=== PATIENT | female | born 1950 | race African-American/Black ===

== ENCOUNTER → 2017-06-09 | Day surgery (SDC) | payer OTHER ==
[~2017-06-09] MED LIST: IV RINGERS,LACTATED 1000ML 1,000 ML IV SCH; LIDOCAINE 1% 1 ML SYRINGE. ID PRN; LOSA100T6 PO; METF-620 PO; MIDAZOLAM HCL/PF 2 MG/2 ML VIAL. IV PRN; PROPOFOL 40 ML IV ONE; TRIA1TAB3 PO; fentaNYL PF VIAL 100 MCG/2 ML VIAL IV PRN
--- NOTE | 2017-06-09 09:55 | PDOC1 ---
HISTORY & PHYSICAL H&P Genny Rivers [id number] 1950 05/12/2017 03:00 PM 10/12 [facility], [facility] [address] [place] [address]. [phone] Patient: Genny Rivers Date of : 1950 Date: 05/12/2017 3:00 PM Visit Type: Consult This 66 year old female presents for Screening colonoscopy. History of Present Illness: 1. Screening colonoscopy No prior screening. Denies risk factors. Pertinent negatives include abdominal pain, change in bowel habits, change in stool caliber, constipation, decreased appetite, diarrhea, melena, nausea, rectal bleeding, vomiting, weight gain and weight loss. Additional information: No family history of colon cancer , No family history of Crohn's/colitis, No NSAID/ASA use and Last colonoscopy 2005. INTAKE COMMENTS: Intake Comments: Nurse Note: the pt is here today to schedule a screening colonoscopy her last one was in 2005. PROBLEM LIST: Problem Description Onset Date Chronic Notes Hypertension 05/12/2017 Y PAST MEDICAL/SURGICAL HISTORY (Detailed) Disease/disorder Onset Date Management Date Comments Hysterectomy, total Cholecystectomy Cancer, breast Mastectomy of left breast Diabetes mellitus Hypertension Medications (Active): Started Medication Directions Instruction Stopped losartan 100 mg tablet take 1 tablet by oral route every day metformin 1,000 mg tablet take 1 tablet by oral route 2 times every day with morning and evening meals triamterene 37.5 mg-hydrochlorothiazide 25 mg capsule take 1 capsule by oral route every day Allergies: Ingredient Reaction Medication Name Comment NO KNOWN ALLERGIES REVIEW OF SYSTEMS System Neg/Pos Details Constitutional Negative Chills, fever, malaise, weight gain and weight loss. ENMT Negative Sore throat. Eyes Negative Double vision. Respiratory Negative Dyspnea and wheezing. Cardio Negative Chest pain and irregular heartbeat/palpitations. GI Positive See HPI. GI Negative Abdominal pain, change in bowel habits, change in stool caliber, constipation, decreased appetite, diarrhea, melena, nausea, see HPI, rectal bleeding and vomiting. Negative Dysuria and hematuria. Endocrine Negative Cold intolerance and heat intolerance. Psych Negative Anxiety. Integumentary Negative Hives and rash. MS Negative Joint pain. Eris/Lymph Negative Easy bleeding and easy bruising. Allergic/Immuno Negative Food allergies. VITAL SIGNS Time BP mm/Hg Pulse /min Resp /min Temp F Ht ft Ht in Ht cm Wt lb Wt kg BMI kg/ m2 BSA m2 O2 Sat% 3:32 PM 136/82 96 97.8 5.0 7.00 170.18 286.40 129.909 44.86 95 Time Measured by 3:32 PM Bree Suarez PHYSICAL EXAM: Exam Findings Details Constitutional Normal Well developed. Eyes Normal Conjunctiva - Right: Normal, Left: Normal. Sclera - Right: Normal, Left: Normal. Nasopharynx Normal Lips/teeth/gums - Normal. Neck Exam Normal Inspection - Normal. Thyroid gland - Normal. Respiratory Normal Inspection - Normal. Auscultation - Normal. Cardiovascular Normal Regular rate and rhythm. No murmurs, gallops, or rubs. Vascular Normal Pulses - Carotids: Normal, Femoral: Normal, Dorsalis pedis: Normal. Abdomen Normal Inspection - Normal. Anterior palpation - No guarding. No abdominal tenderness. No hepatic enlargement. No splenic enlargement. No hernia. No Ascites. Skin Normal Inspection - Normal. Extremity Normal No edema. Psychiatric Normal Oriented to time, place, person, and situation. Appropriate mood and effect. Assessment/Plan # Detail Type Description 1. Assessment Encounter for screening colonoscopy (Z12.11). Patient Plan schedule colonoscopy at [facility] [place] Plan Orders Further diagnostic evaluations ordered today include(s) Colonoscopy to be performed today. She is to schedule a follow-up visit with Gustavo Gallego MD upon completion of work-up Electronically signed by: Gustavo Gallego MD 05/12/2017 03:58 PM Document generated by: Gustavo Gallego 05/12/2017 03:58 PM Linda Worrell MD, Family Practice; Jevon Mckeon MD Internal Medicine; Melecio Dodd MD, Internal Medicine; Nely Gallego MD Internal Medicine; Gustavo Gallego MD, Gastroenterology; Chilango Gambino MD, Rheumatology, S. Aramis Julio, Physical Medicine/Rehab Marito Mari APRN ------ 06/09/17 Patient seen and examined. No change in H&P. GUSTAVO GALLEGO MD Jun 09, 2017 09:55
[2017-06-09 10:59] VITALS: BP 145/85
== END | disposition home or self-care (01) ==
LOC: SURG 09:13
PROVIDERS: ATTEND Internal Medicine Gastroenterology
DX: Z12.11 Encounter for screening for malignant neoplasm of colon (principal); K57.30 Diverticulosis of large intestine without perforation or abscess without bleeding; I10 Essential (primary) hypertension; M19.91 Primary osteoarthritis, unspecified site; E11.9 Type 2 diabetes mellitus without complications; Z90.710 Acquired absence of both cervix and uterus; Z90.49 Acquired absence of other specified parts of digestive tract; Z86.39 Personal history of other endocrine, nutritional and metabolic disease
CPT/HCPCS: 45378; 82962; J2704

== ENCOUNTER → 2021-08-28 | Outpatient (CLI) | payer OTHER ==
[2018-07-12 13:18] VITALS: BP 174/87
[~2021-08-28] MED LIST changes: -IV RINGERS,LACTATED 1000ML 1,000 ML IV SCH; -LIDOCAINE 1% 1 ML SYRINGE. ID PRN; +LOSA100T14 PO; -LOSA100T6 PO; -METF-620 PO; +METF10007 PO; -MIDAZOLAM HCL/PF 2 MG/2 ML VIAL. IV PRN; -PROPOFOL 40 ML IV ONE; -fentaNYL PF VIAL 100 MCG/2 ML VIAL IV PRN
[2021-08-28 09:51] LABS: BASO # 0.1 x10^3/uL (0.0-0.2); BASO % 1 % (0-3); EOS # 0.1 x10^3/uL (0.0-0.7); EOS % 2 % (0-3); HEMATOCRIT 40.9 % (36.0-47.0); HEMOGLOBIN 13.2 g/dL (12.0-15.5); LYMPH # 2.8 x10^3/uL (1.0-4.8); LYMPH % 44 % (24-48); MEAN CORPUSCULAR HEMOGLOBIN 26 pg (25-35); MEAN CORPUSCULAR HGB CONC 32 g/dL (31-37); MEAN CORPUSCULAR VOLUME 80 fL (79-100); MONO # 0.5 x10^3/uL (0.0-1.1); MONO % 8 % (0-9); NEUT # 2.9 x10^3/uL (1.8-7.7); NEUT % 45 % (31-73); PLATELET COUNT 325 x10^3/uL (140-400); RED BLOOD COUNT 5.14 x10^6/uL (3.50-5.40); RED CELL DISTRIBUTION WIDTH 15.6 % (11.5-14.5); WHITE BLOOD COUNT 6.4 x10^3/uL (4.0-11.0)
[2021-08-28 10:12] LABS: CALCIUM 9.5 mg/dL (8.5-10.1); CREATININE 0.7 mg/dL (0.6-1.0); GFR 99.8; POTASSIUM 3.7 mmol/L (3.5-5.1)
[2021-08-28 10:17] LABS: ALBUMIN 3.5 g/dL (3.4-5.0); ALBUMIN/GLOBULIN RATIO 0.8 (1.0-1.7); TOTAL BILIRUBIN 0.4 mg/dL (0.2-1.0)
== END ==
LOC: ONCLAB 08:57
PROVIDERS: ATTEND Internal Medicine Hematology & Oncology
DX: Z85.07 Personal history of malignant neoplasm of pancreas (principal)
CPT/HCPCS: 36415; 80053; 82941; 85025

== ENCOUNTER → 2021-09-11 | Outpatient (CLI) | payer MEDICARE ==
[2018-07-12 13:18] VITALS: BP 174/87
[~2021-09-11] MED LIST changes: +CONTRAST GIVEN. MC PRN; +IOHEXOL 240 MG/ML 50ML VIAL. PO ONE; +IOHEXOL 300 MG/ML 100ML VIAL. IV ONE
--- NOTE | 2021-09-11 12:00 | RAD ---
EXAM: CT Chest, Abdomen and Pelvis with IV contrast CLINICAL HISTORY: Reason: HISTORY OF PANCREATIC CANCER COMPARISON: CT 07/10/2018 TECHNIQUE: Helical CT of the chest, abdomen and pelvis was performed following the administration of intravenous contrast. Axial, coronal and sagittal reformatted images were generated. ---PQRS compliance statement - One or more of the following individualized dose reduction techniques were utilized for this study: 1. Automated exposure control 2. Adjustment of the mA and/or kV according to patient size 3. Use of iterative reconstruction technique--- FINDINGS: Chest: Heart is not enlarged. Coronary calcifications. No pericardial effusion. No pleural effusion. No pneu mothorax. No axillary lymphadenopathy. Left axillary surgical clips are seen. No mediastinal or hilar lymphaden opathy. Linear opacity lingula. No suspicious lung nodule or mass. Abdomen and Pelvis: Hepatic hypoattenuation, fatty liver. The previously seen right hepatic lobe lesion is not seen, like ly postsurgical. No focal liver lesion. Spleen is unremarkable. Adrenal lesions are normal. Pancreatic masses described in the clinical history is not definitively seen on this CT. Symmetric ne phrograms. Nonobstructing right lower pole renal calculus. Simple appearing right lower pole cyst. No hydronephrosis. No hydroureter. Bladder is unremarkable. Appendix is normal. Colonic diverticulosis without CT evidence for acute diverticulitis. Longitudinal ventral abdominal incision with a series of ventral abdominal fat containing hernias. In the supraumbilical region a ventral abdominal hernia contains a segment of colon without associated obstruction. No abdominal or pelvic lymphadenopathy. Aortic calcifications are seen. No abdominal or pelvic ascite s. Bones: Multilevel degenerative changes of the spine are seen. No definite aggressive osseous lesion i s seen. IMPRESSION: 1. No thoracic, abdominal or pelvic lymphadenopathy. 2. No definite pancreatic mass is seen 3. Colonic diverticulosis without CT evidence for acute diverticulitis. 4. Nonobstructing right lower pole renal calculus. 5. Previously seen hepatic low attenuation is no longer seen. Posttreatment changes of the right santiago er. Electronically signed by: Logan Haskins MD (09/11/2021 11:58 AM) [facility]
== END ==
LOC: CT 07:23
PROVIDERS: ATTEND Internal Medicine Hematology & Oncology
DX: K57.30 Diverticulosis of large intestine without perforation or abscess without bleeding (principal); N20.0 Calculus of kidney; E27.8 Other specified disorders of adrenal gland; K43.9 Ventral hernia without obstruction or gangrene; I70.0 Atherosclerosis of aorta; K76.0 Fatty (change of) liver, not elsewhere classified; Z85.07 Personal history of malignant neoplasm of pancreas
CPT/HCPCS: 71260; 74177; Q9966; Q9967